=== PATIENT | female | born 1970 | race Caucasian/White ===

== ENCOUNTER 2017-05-28 14:56 | Emergency (ER) | payer SELFPAY ==
[2017-05-28 15:33] VITALS: BP 132/88
[2017-05-28] MEDS ORDERED: NACL 0.9% 500 ML 500 ML IV ONE (15:34)
[2017-05-28 16:19] LABS: Basophils % (Auto) 0.5 % (0.0-1.8); Hematocrit 38.1 % (30.3-42.9); Hemoglobin 13.1 gm/dl (10.1-14.3); Mean Corpuscular HGB Conc 34 % (30-34); Mean Corpuscular Hemoglobin 31 pg (28-32); Mean Corpuscular Volume 90 fl (79-97); Platelet Count 169 K/mm3 (140-440); Red Blood Count 4.21 M/mm3 (3.65-5.03); Red Cell Distribution Width 14.1 % (13.2-15.2); White Blood Count 12.1 K/mm3 (4.5-11.0)
[2017-05-28 16:29] LABS: INR 1.09 (0.87-1.13)
[2017-05-28 16:40] LABS: Alanine Aminotransferase 85 units/L (7-56); Albumin 4.3 g/dL (3.9-5); Alkaline Phosphatase 74 units/L (35-129); Anion Gap 19 mmol/L; BUN/Creatinine Ratio 17; Blood Urea Nitrogen 12 mg/dL (7-17); Calcium 9.5 mg/dL (8.4-10.2); Carbon Dioxide 24 mmol/L (22-30); Glucose 140 mg/dL (65-100); Sodium 136 mmol/L (137-145); Total Protein 8.7 g/dL (6.3-8.2)
--- NOTE | 2017-05-28 17:46 | XRay Report ---
FINAL REPORT PROCEDURE: XR CHEST 1V AP TECHNIQUE: Chest radiograph anteroposterior view. CPT 24411 HISTORY: possible Sepsis COMPARISON: No prior studies are available for comparison. FINDINGS: Heart: Normal. Mediastinum/Vessels: Normal. Lungs/Pleural space: Normal. Bony thorax: No acute osseous abnormality. Life support devices: None. IMPRESSION: No acute cardiopulmonary abnormality.
== END 2017-05-28 21:53 | disposition left against medical advice (07) ==
LOC: ED 14:56
DX: Z53.21 Procedure and treatment not carried out due to patient leaving prior to being seen by health care provider (principal)
CPT/HCPCS: 36415; 71010; 80053; 82140; 82805; 85025; 85610; 87040; 93005; 93010